=== PATIENT | male | born 1975 | race African-American/Black ===

== ENCOUNTER 2016-07-04 14:16 | Emergency (ER) ==
[2016-07-04 14:27] VITALS: BP 144/1
--- NOTE | 2016-07-04 14:59 | PROVIDER DOCUMENTATION ---
HPI-Respiratory General - History of Present Illness-Resp Quality of Pain: reports: none Severity in ED: reports: mild Onset/Duration: reports: 24 hours ago Timing: reports: improving Cough Quality/Degree: reports: no cough Episode Frequency: occasional episodes Current Respiratory Medication Therapy: Initiated see nurses note Modifying Factors: improves with: exertion, albuterol nebulizer, oxygen Associated Symptoms: reports: denies symptoms Similar Symptoms Previously?: Yes Recently seen or treated by another doctor?: No <Maxi Vaca - Last Filed: 07/04/16 14:55> <Mateusz Beckett - Last Filed: 07/04/16 15:04> - General Chief Complaint: Asthma Attack Stated Complaint: ASTHMA SX Time Seen by Provider: 07/04/16 14:38 Allergies/Adverse Reactions: Patient Allergies Allergy/AdvReac Type Severity Reaction Status Date / Time No Known Allergies Allergy Verified 01/30/16 07:38 Home Medications: Home Medication List Medication Instructions Recorded Confirmed Last Taken Type Albuterol Sulfate Inhaler 2 puff INH Q6H PRN PRN #1 inhaler 11/28/15 01/30/16 Unknown Rx [Ventolin Hfa] Albuterol Sulfate 1.25 mg IH Q4-6H PRN PRN #30 01/13/16 01/30/16 Unknown Rx vial.neb Albuterol Sulfate 2.5 mg IH Q4H PRN PRN #120 vial.neb 07/04/16 Unknown Rx Albuterol Sulfate [Albuterol 8.5 gm IH Q4-6H PRN PRN #2 07/04/16 Unknown Rx Sulfate Hfa] hfa.[email or web address] Prednisone 10 mg PO DAILY #50 tablet 07/04/16 Unknown Rx - History of Present Illness-Resp Nature of Presenting Problem: PT C/O SOB SINCE YESTERDAY WORSE WHEN HE GETS OVER HEATED STATED "I HAVE BEEN OUT OF MY ALBUTEROL SO I HAVE BEEN USING MY DAUGHTERS MEDICATION". (Maxi Vaca) Review of Systems - Adult - REVIEW OF SYSTEMS - ADULT Constitutional: denies: chills, fever, fatique Eyes: denies: discharge, double vision, eye pain Ears, Nose, Mouth & Throat: denies: ear pain, mouth/dental pain, throat swelling Cardiovascular: denies: chest pain, irregular heart rate, palpitations Respiratory: reports: shortness of breath, wheezing (MILD). denies: cough Gastrointestinal: denies: abdominal pain, diarrhea, nausea, vomiting Genitourinary: denies: dysuria, flank pain, hematuria Musculoskeletal: denies: back pain, joint swelling, neck pain Integumentary: denies: hives, itching, rash Neurological: denies: dizziness/vertigo, headache/migraines, numbness Psychiatric: denies: anxiety, depression, emotional problems Endocrine: denies: change in skin pigment, heat intolerance, increased thirst Allergic/Immunologic: reports: asthma. denies: food allergy, urticaria All Other Systems: Reviewed and Negative <Maxi Vaca - Last Filed: 07/04/16 14:55> Past History - Adult - PAST MEDICAL HISTORY-ADULT Review of Records: reports: Old Records Reviewed, Nursing Assessment Review, Medications Reviewed Major Childhood Illnesses: reports: denies history Respiratory: reports: asthma, bronchitis - PRIOR SURGERIES/PROCEDURES Surgical/Procedure History: reports: none - IMMUNIZATION STATUS Childhood Immunizations: See Nurse Assessment Flu Vaccine: See Nurse Assessment - FAMILY HISTORY Family History: reviewed, not pertinent - SOCIAL HISTORY Smoking: greater than 1 pack/day Substance Use: none/never Alcohol Use Frequency: never Living Situation: family <Maxi Vaca - Last Filed: 07/04/16 14:55> Physical Exam-General - PHYSICAL EXAM-ADULT Initial Vital Signs Reviewed: Yes - CONSTITUTIONAL General Appearance: appears well, alert, no apparent distress - EYES Eyes: PERRL/EOMI, pink conjunctivae, fundi clear, no AV nicking - HEAD, EARS, NOSE, MOUTH & THROAT HENMT: normocephalic/atraumatic, moist mucous membranes, normal ENT inspection, TMs normal, pharynx normal - NECK Neck: non-tender, full range of motion, supple, normal inspection - RESPIRATORY Respiratory: chest non-tender, no pleuratic chest pain, no respiratory distress , no accessory muscle use, wheezing (MILD) - CARDIOVASCULAR Cardiovascular: normal peripheral pulses, regular rate, rhythm, no edema, no gallop, no JVD, no murmur - GASTROINTESTINAL (ABDOMEN) Abdominal Exam: normal bowel sounds, non tender, soft, no organomegaly, no pulsatile mass - MUSCULOSKELETAL Back Exam: normal inspection, no CVA tenderness, no vertebral tenderness Extremity: normal range of motion, non-tender, normal gait, normal inspection, no pedal edema, no calf tenderness, normal capillary refill - SKIN Integumentary: normal color, normal turgor, warm/dry - PSYCHIATRIC Psych/Mental Status: normal mood/affect, normal thought content, normal thought process <Maxi Vaca - Last Filed: 07/04/16 14:55> Departure <Maxi Vaca - Last Filed: 07/04/16 14:55> - Departure Time of Disposition Order: 14:59 Certified Medical Emergency: Emergent <Mateusz Beckett - Last Filed: 07/04/16 15:04> - Departure DIAGNOSIS: Asthma Qualifiers: Asthma severity: mild intermittent Asthma complication type: uncomplicated Qualified Code(s): J45.20 - Mild intermittent asthma, uncomplicated Disposition: HOME 01 Condition: Stable Additional Instructions: ashtma meds refilled, use steroids as required ED Follow Up Instructions: You have been treated by a care provider in the Emergency Department. These instructions are being provided to you so you can have an understanding of how to care for yourself upon discharge. Upon discharge from the Emergency Department, you are responsible for making arrangements for follow-up care by a physician of your choice. Take all prescribed medications as directed. Return to the Emergency Department immediately for any new or worsening symptoms. You may call the Physician Referral phone number at [phone] to obtain a list of Physicians who are taking new patients. Prescriptions: Albuterol Sulfate 2.5 mg IH Q4H PRN PRN #120 vial.neb PRN Reason: wheezing, short of breath Albuterol Sulfate [Albuterol Sulfate Hfa] 8.5 gm IH Q4-6H PRN PRN #2 hfa.[email or web address] PRN Reason: wheezing, short of breath Prednisone 10 mg PO DAILY #50 tablet Physician Attestation
[2016-07-04] MEDS ORDERED: PREDNISONE PO ONE (15:03)
== END 2016-07-04 15:20 | disposition home or self-care (01) ==
LOC: P.ED 14:16
DX: J45.20 Mild intermittent asthma, uncomplicated (principal); R06.02 Shortness of breath; R06.2 Wheezing; F17.210 Nicotine dependence, cigarettes, uncomplicated
CPT/HCPCS: 99282; J7512

== ENCOUNTER 2019-02-21 03:08 | Inpatient (IN) ==
[2019-02-21] MEDS ORDERED: DUONEB (A & A) INH ONE (03:22)
[2019-02-21] MEDS ORDERED: DECADRON IM ONE (04:04)
--- NOTE | 2019-02-21 04:23 | PROVIDER DOCUMENTATION ---
HPI-Respiratory General - General Chief Complaint: Shortness of Breath Stated Complaint: SOB Time Seen by Provider: 02/21/19 03:21 Source: patient Allergies/Adverse Reactions: Patient Allergies Allergy/AdvReac Type Severity Reaction Status Date / Time No Known Allergies Allergy Verified 02/16/19 15:31 Home Medications: Home Medication List Medication Instructions Recorded Confirmed Last Taken Type Albuterol [Albuterol Neb] 2.5 mg NEB Q4H PRN #30 neb 02/16/19 02/21/19 Unknown Rx - History of Present Illness-Resp Nature of Presenting Problem: Patient is a 43 year old black male with history of asthma, just seen 5 days ago in ED for asthma exacerbation and sent home with asthma medication which he failed to obtain. patient now arrives with shortness of breath and wheezing. Denies fever. Quality of Pain: reports: none Onset/Duration: reports: 1 week ago Timing: reports: still present Modifying Factors: improves with: exertion Similar Symptoms Previously?: Yes Recently seen or treated by another doctor?: Yes (5 days ago in ER) Review of Systems - Adult - REVIEW OF SYSTEMS - ADULT Constitutional: denies: chills, fever Eyes: reports: no symptoms reported Ears, Nose, Mouth & Throat: reports: no symptoms reported Cardiovascular: denies: chest pain Respiratory: reports: cough, wheezing Gastrointestinal: reports: no symptoms reported Genitourinary: reports: no symptoms reported Musculoskeletal: reports: no symptoms reported Integumentary: reports: no symptoms reported Neurological: reports: no symptoms reported Psychiatric: reports: no symptoms reported Endocrine: reports: no symptoms reported Hematologic/Lymphatic: reports: no symptoms reported Allergic/Immunologic: reports: no symptoms reported All Other Systems: Reviewed and Negative Past History - Adult - PAST MEDICAL HISTORY-ADULT Review of Records: reports: Old Records Reviewed, Nursing Assessment Review, Medications Reviewed, Social history reviewed & non-contributory. Major Childhood Illnesses: reports: denies history Cardiovascular: reports: denies history Respiratory: reports: asthma, bronchitis, COPD Gastrointestinal: reports: denies history Obstetrical/Gynecological: reports: denies history Genitourinary: reports: denies history Musculoskeletal: reports: denies history Neurological: reports: denies history Endocrine/Immune: reports: denies history Other Conditions: reports: denies history - PRIOR SURGERIES/PROCEDURES Surgical/Procedure History: reports: none - IMMUNIZATION STATUS Childhood Immunizations: See Nurse Assessment Flu Vaccine: See Nurse Assessment - FAMILY HISTORY Family History: reviewed, not pertinent Physical Exam-General - CONSTITUTIONAL General Appearance: alert, no apparent distress - EYES Eyes: other (clear) - HEAD, EARS, NOSE, MOUTH & THROAT HENMT: moist mucous membranes - NECK Neck: supple - RESPIRATORY Respiratory: other (difuse bilateral wheezing) - CARDIOVASCULAR Cardiovascular: regular rate, rhythm - GASTROINTESTINAL (ABDOMEN) Abdominal Exam: soft. negative: rebound - MUSCULOSKELETAL Back Exam: normal inspection, no CVA tenderness Extremity: normal range of motion, non-tender Peripheral Pulses: radial (R): 2+, radial (L): 2+ - SKIN Integumentary: normal color, normal turgor, warm/dry, abrasion(s) - NEUROLOGIC Neurologic: grossly normal - PSYCHIATRIC Psych/Mental Status: anxious Progress - PLAN OF CARE/RESULTS Progress/Plan/Lab Results: Vital Signs - 8 hr 02/21/19 03:13 02/21/19 03:30 02/21/19 05:09 Temperature 98.1 F Pulse Rate 101 H 93 H 98 H Respiratory Rate 28 H 24 22 Blood Pressure 124/72 O2 Sat by Pulse Oximetry 88 L 90 L 94 L Orders Category Date Time Status Saline Loc NOW Care 02/21/19 05:22 Ordered CHEST-2 VIEWS [RAD] Stat Exams 02/21/19 04:05 Taken Albuterol 2.5MG/Ipratrop 0.5MG [Duoneb (A & A)] Med 02/21/19 03:22 Discontinued 3 ml INH NOW ONE Albuterol [Albuterol Neb] Med 02/21/19 04:51 Discontinued 2.5 mg INH NOW ONE Dexamethasone [Decadron] Med 02/21/19 04:04 Discontinued 8 mg IM NOW ONE Aerosol Treatments Routine Oth 02/21/19 03:22 Completed Aerosol Treatments Routine Oth 02/21/19 04:51 Completed Aerosol Treatments Stat Oth 02/21/19 03:22 Completed Aerosol Treatments Stat Oth 02/21/19 04:51 Completed - REASSESSMENT Reassessment #1 Time Reassessed: 04:50 Status: unchanged Reassessment Comment: continues to wheeze Reassessment #2 Status: unchanged Reassessment Comment: continues to wheeze - CONSULTS/PCP/HOSPITALIST Notification #1 *Consult/PCP/Hospitalist*: Dr. Vizcaino Time Discussed: 05:20 Consult Disposition: Admit Departure - Departure Date of Disposition Decision: 02/21/19 Time of Disposition Decision: 05:25 DIAGNOSIS: Noncompliance Asthma attack Qualifiers: Asthma severity: mild Asthma persistence: intermittent Qualified Code(s): J45.21 - Mild intermittent asthma with (acute) exacerbation Disposition: ADMITTED INPATIENT 09 Certified Medical Emergency: Emergent Condition: Stable Additional Instructions: please fill prescriptions that were given to you 2 days ago. Referrals and Follow-Ups: None,PCP [Primary Care Provider] - - Critical Care Note This patient required my direct & personal management of CC.: No Attestation - Physician/ SANTIAGO Attestation Patient care was provided by Advanced Practice Provider:: No The physician spent face to face time with patient:: Yes Advanced Practice Provider documentation review:: Supervising physician onsite and consulted in the evaluation and care of this patient. The physician did have a face to face encounter with the patient.
[2019-02-21] MEDS ORDERED: ALBUTEROL NEB INH ONE ×2 (04:51→09:23)
[2019-02-21 05:54] LABS: BASO# 0.02 X1000 (0.0-0.2); BASO% 0.2 % (0.0-0.8); EOS# 0.32 X1000 (0.0-0.7); EOS% 2.7 % (0.0-10.0); HEMOGLOBIN 13.5 g/dL (14.0-18.0); IMM GRAN# 0.01 X1000 (0.0-0.04); IMM GRAN% 0.1 % (0.0-0.5); LYMPH# 0.81 X1000 (1.2-3.4); LYMPH% 6.8 % (20.5-51.1); MCH 32.5 PG (27-31); MCHC 34.6 g/dL (33-37); MCV 93.8 FL (81-99); MONO# 0.73 X1000 (0.11-0.59); MONO% 6.2 % (1.7-9.3); NEUT# 9.94 X1000 (1.4-6.5); PLT 257 X1000 (130-400); RBC 4.16 XMIL (4.7-6.1); RDW 13.9 % (11.5-14.5); WBC 11.83 X1000 (4.8-10.8)
[2019-02-21 06:18] LABS: AGAP 13; BUN 9 mg/dL (8-22); CALCIUM 9.2 mg/dL (8.8-10.2); CHLORIDE 104 mmol/L (98-107); COSMO 281; CREATININE 0.9 mg/dL (0.7-1.2); ESTIMATED GFR > 60; GLUCOSE 110 mg/dL (70-104); POTASSIUM 3.7 mmol/L (3.5-5.1); SODIUM 141 mmol/L (136-145); TCO2 23 mmol/L (25-35)
[2019-02-21] MEDS ORDERED: DUONEB (A & A) INH SCH (07:30)
[2019-02-21] MEDS: DUONEB (A & A) INH PRN ×2 (07:45→09:54)
--- NOTE | 2019-02-21 07:54 | Diag Imaging Result Doc PS360 ---
EXAM: CHEST-2 VIEWS - 02/21/2019 HISTORY: sob TECHNIQUE: Chest two views COMPARISON: 02/16/2019 FINDINGS: Heart size is normal. There are COPD changes with hyperexpanded lungs. The lungs appear mildly less hyperexpanded compared to prior. There is no acute consolidation, pleural effusion, or pneumothorax identified. There is old fracture deformity of the posterior lateral right ninth rib noted. IMPRESSION: Mild decrease in hyperexpansion of lungs compared to prior, which may relate to improvement in COPD exacerbation. No other acute changes. Electronically signed by Zac Simms 02/21/2019 7:51 AM
[2019-02-21] MEDS ORDERED: SOLU-MEDROL IV SCH ×2 (08:00→16:00)
[2019-02-21] MEDS ORDERED: ZOFRAN IV PRN ×3 (09:20→12:13)
[2019-02-21] MEDS ORDERED: TYLENOL PO PRN ×2 (09:20→11:10)
[2019-02-21] MEDS ORDERED: NS 1,000 ML IV SCH (09:30)
[2019-02-21] MEDS ORDERED: ALBUTEROL NEB ONE (09:38)
[2019-02-21] MEDS ORDERED: DUONEB (A & A) INH PRN (11:10)
[2019-02-21] MEDS: DUONEB (A & A) INH SCH ×4 (11:51→23:04)
[2019-02-21] MEDS: NS 1,000 ML IV SCH (11:57)
[2019-02-21] MEDS: ZITHROMAX 500 MG/NS 500 MG/250 ML IVPB IV SCH (11:58)
--- NOTE | 2019-02-21 13:30 | HISTORY AND PHYSICAL ---
PRIMARY CARE PROVIDER: None. CHIEF COMPLAINT: Shortness of breath. HISTORY OF PRESENT ILLNESS: Mr. Jean is a 43-year-old male who carries a past medical history of asthma, noncompliant, reported to the ED with increase in shortness of breath. He was treated 5 or 6 days ago in the ED for asthma exacerbation, sent home with medications which he did not fill. He came back to the ED with shortness of breath. He denies any fever, chills or cough. No chest pain, nausea, vomiting, or diarrhea, and was admitted for acute asthma exacerbation. After several rounds of treatment, he continues to decline so we will be transferring him to [facility] to their ICU with a Pulmonology consult. He was given several doses of albuterol nebulizers, Decadron and Solu-Medrol as well as DuoNeb with no improvement and continues to decline. PAST MEDICAL HISTORY: 1. COPD/Asthma. 2. Noncompliance. PAST SURGICAL HISTORY: None. FAMILY HISTORY: Reviewed and noncontributory. SOCIAL HISTORY: He lives with family. He is a daily smoker. No alcohol or illicit drugs. ALLERGIES: No known drug allergies. HOME MEDICATIONS: 1. Albuterol nebulizer 2.5 mg nebulized q.4 hours. 2. Albuterol inhaler 2 puffs inhaled q.6 hours p.r.n. shortness of breath. However, I do not believe that these were filled. REVIEW OF SYSTEMS: Twelve-point review of systems completely negative except for those mentioned in HPI. PHYSICAL EXAMINATION: VITAL SIGNS: Temperature is 97.6 degrees, heart rate 103, respirations 22, blood pressure 133/76, O2 is 93% on 3 L nasal cannula, increased to 5 L. HEENT: Atraumatic, normocephalic. PERRL. NECK: Supple. Trachea midline. CV: Sinus tachycardia, S1, S2 appreciated. No murmurs, gallops, rubs noted. RESPIRATORY: Lung sounds initially wheezes with not moving a lot of air. Since numerous breathing treatments he does sound a little bit more open but continues to wheeze. Continues to be in the tripod position. States he cannot catch his breath. GI: Abdomen is flat, soft, nontender, nondistended. Positive bowel sounds 4 quads. LOWER EXTREMITIES: Negative for edema. No signs of clubbing or cyanosis. NEUROLOGIC: No focal deficits noted. LABORATORY DATA: White count 11, hemoglobin and hematocrit 13 and 39, platelet count is 257,000. Sodium 141, potassium 3.7, BUN 9, creatinine 0.9, blood glucose was 110. Chest x-ray: Mild decrease in hyperexpansion of the lungs compared to prior, which may relate to improvement in COPD exacerbation. No other acute changes. ASSESSMENT AND PLAN: 1. COPD exacerbation with minimal improvement after receiving multiple rounds of DuoNeb and steroids as well as supplemental O2. We will transfer him to [facility] ICU with a Pulmonology consult. 2. Acute hypoxemic respiratory failure secondary to #1. 3. Further treatment and evaluation pending physician evaluation, laboratory and diagnostic data. Dictated by ZARI Olea for Pascual Vizcaino MD cc: MD Ramírez Hermosillo MD [facility]
--- NOTE | 2019-02-21 14:11 | HISTORY AND PHYSICAL ---
ADDENDUM: Patient seen and examined by myself. Full note dictated and discussed with nurse practitioner. Patient notes that he has been short of breath, cough, congestion for the past several day, has started using albuterol again. Notes that he does not typically use albuterol on any regular basis. States he had increased work of breathing, shortness of breath, no real fevers or chills and has had a nonproductive cough. Has had increased work of breathing, dyspnea on exertion. He presented to the hospital in moderate distress. We are going to admit him the hospital, place him on nebulized treatments q.4 with q.2 p.r.n. At this point, feel as though he needs to be in the ICU so going to transfer him to the ICU and consult Cardiology. cc: Pascual Vizcaino MD
[2019-02-21] MEDS: SOLU-MEDROL IV SCH (15:16)
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
[2019-02-22] MEDS: SOLU-MEDROL IV SCH ×3 (01:04→16:23)
[2019-02-22] MEDS: NS 1,000 ML IV SCH ×3 (01:36→15:12)
[2019-02-22] MEDS: DUONEB (A & A) INH SCH ×6 (03:54→23:21)
[2019-02-22 06:46] LABS: ALLEN TEST YES; BE 3.6 mmoll (-3.0-3.0); BLOOD TYPE ARTERIAL; HCO3-(ACT) 27.7 mmoll (20.0-26.0); METHB 1.4 % (0.0-1.5); O2(CT) 20.7 mL/dL (15.0-23.0); O2HB 96.7 % (95.0-99.0); PCO2(98.6) 49 mmHg (35-45); PO2(98.6) 114 mmHg (60-100); SAMPLE BLOOD; SAO2 99.7 % (95.0-100.0); THB 15.1 g/dL (11.5-17.4); pH(98.6) 7.39 (7.35-7.45)
[2019-02-22 06:47] LABS: MODALITY VENTIMASK
[2019-02-22 06:48] LABS: HEMATOCRIT 42.9 % (42.0-52.0); HEMOGLOBIN 14.4 g/dL (14.0-18.0); MCH 32.2 PG (27-31); MCHC 33.6 g/dL (33-37); MPV 10.6 FL (7.4-10.4); RBC 4.47 XMIL (4.7-6.1); RDW 14.1 % (11.5-14.5); WBC 22.88 X1000 (4.8-10.8)
[2019-02-22 06:57] LABS: AGAP 14; ALB/GLOB RATIO 1.5; ALBUMIN 3.8 g/dL (3.5-5.0); ALKALINE PHOSPHATASE 67 U/L (32-122); BUN 12 mg/dL (8-22); CALCIUM 8.7 mg/dL (8.8-10.2); CHLORIDE 99 mmol/L (98-107); COSMO 275; CREATININE 0.8 mg/dL (0.7-1.2); ESTIMATED GFR > 60; GLUCOSE 131 mg/dL (70-104); GOT 64 U/L (10-34); GPT 24 U/L (10-44); POTASSIUM 4.9 mmol/L (3.5-5.1); SODIUM 137 mmol/L (136-145); TCO2 24 mmol/L (25-35); TOTAL PROTEIN 6.4 g/dL (6.3-8.3)
--- NOTE | 2019-02-22 07:03 | PROGRESS NOTE ---
DATE: 02/22/2019 SUBJECTIVE: The patient reports breathing much better in comparing with admission. According to nursing staff, no acute issues noted overnight. OBJECTIVE: Vital Signs: Temperature 100.3, heart rate 90, respiratory rate 33, blood pressure 147/77, O2 saturation 99% on Venturi mask at 15 L/minute. General: This is a 43-year-old male, lying in bed in no acute distress. Cardiovascular: S1, S2 heard. Tachycardic, but no murmurs, gallops, or rubs. Respiratory: The patient is a little bit tachypneic, and wheezing noted in both pulmonary stevenson. The patient is not using any accessory muscles or having work of breathing. Abdomen: Soft, nontender to palpation. Bowel sounds present. No organomegaly. Extremities: No clubbing, cyanosis, or edema. Peripheral pulses present in both legs. Neurological: The patient is alert and oriented x3, moving all four extremities. LABORATORY DATA: Pending at the time of my dictation. ASSESSMENT AND PLAN: 1. Acute hypoxemic respiratory failure secondary to severe asthma exacerbation. The patient is on Zithromax and DuoNeb every 4 hours scheduled. Considering that he is developing fever being on Zithromax, will add Zosyn. Will check CT of the thorax without contrast to see if there is any pneumonia that we are missing. We have checked for influenza, and that is negative. Will continue to monitor this patient. 2. Tobacco use. The patient is strongly advised to stop smoking. 3. Disposition. Considering that he is requiring still being on Ventimask at 15 L/minute, I will transfer this patient to our [facility], and will continue to monitor. cc: MD Pascual Kim MD MTDD
[2019-02-22] MEDS: ZOSYN 3.375 GM in NS 50 ML IV SCH ×3 (08:11→20:34)
--- NOTE | 2019-02-22 08:18 | Diag Imaging Result Doc PS360 ---
EXAM: CT THORAX W/O CONTRAST 02/22/2019 HISTORY: r/o pna TECHNIQUE: This exam was performed using automated exposure control, adjustment of mA or kV according to patient size, and/or use of iterative reconstruction technique. COMMENT: There are no previous studies available for comparison. There are some groundglass opacities in the perihilar portions of both lower lobes the right middle lobe and the lingula and the left upper lobe anteriorly. There is a calcified granuloma in the left lower lobe posteriorly. There is no evidence of significant adenopathy. There are no abnormal fluid collections. There is an apparent cyst in the dome of the left hepatic lobe seen on image 105 measuring 9 mm in diameter. There are additional cysts present in the right hepatic lobe. There is a cyst in the left kidney. IMPRESSION: Perihilar pulmonary edema versus pneumonia. The possibility of an atypical pneumonia cannot be excluded. Electronically signed by Lowell Person 02/22/2019 8:16 AM
[2019-02-22] MEDS: ZITHROMAX 500 MG/NS 500 MG/250 ML IVPB IV SCH (11:20)
--- NOTE | 2019-02-22 22:17 | PULMONOLOGY PROGRESS NOTE ---
DATE: 02/22/2019 SUBJECTIVE: The patient is awake, alert, and conversant. He reports his breathing has significantly improved. OBJECTIVE: Vital Signs: Maximum temperature in the last 24 hours 100.3 degrees, current temperature 98.2 degrees. HEENT: Pupils are equal and reactive. Oropharynx appears clear. Neck: Supple. Chest: Reveals good air entry bilaterally with diffuse expiratory wheezing. Cardiac: Regular rate. Normal S1, normal S2. Abdomen: Soft. Extremities: Without edema. LABS: Arterial blood gas this morning pH 7.39, pCO2 of 49, PO2 of 114. IMPRESSION: A 43-year-old with 1. Severe asthma exacerbation. 2. Acute hypoxemic respiratory failure. 3. Ongoing tobacco use/nicotine addiction. DISCUSSION: 43-year-old problems outlined above. He continues to improve. PLAN: 1. Agree with transfer to the floor. 2. Continue steroids and nebulizer treatment. 3. Smoking cessation. 4. Yearly influenza vaccine. 5. Recommend initiation of a high dose inhaled corticosteroid/long-acting beta agonist at the time of discharge. This could be accomplished with Demetria Delaney Advair, Dulera. cc: MD Pascual Hassan MD
[2019-02-23] MEDS: ZOSYN 3.375 GM in NS 50 ML IV SCH ×4 (02:28→21:40)
[2019-02-23] MEDS: SOLU-MEDROL IV SCH ×3 (02:28→21:41)
[2019-02-23] MEDS: DUONEB (A & A) INH SCH ×6 (02:57→22:50)
[2019-02-23 05:08] LABS: ALLEN TEST YES; BE 3.9 mmoll (-3.0-3.0); BLOOD TYPE ARTERIAL; HCO3-(ACT) 27.9 mmoll (20.0-26.0); METHB 1.1 % (0.0-1.5); O2(CT) 20.3 mL/dL (15.0-23.0); O2HB 96.3 % (95.0-99.0); PCO2(98.6) 48 mmHg (35-45); PO2(98.6) 98 mmHg (60-100); SAMPLE BLOOD; SAO2 98.9 % (95.0-100.0); THB 14.9 g/dL (11.5-17.4)
[2019-02-23 05:09] LABS: MODALITY VENTIMASK
[2019-02-23] MEDS: NS 1,000 ML IV SCH (08:17)
[2019-02-23] MEDS: ZITHROMAX 500 MG/NS 500 MG/250 ML IVPB IV SCH (12:16)
--- NOTE | 2019-02-23 17:02 | PROGRESS NOTE ---
DATE: 02/23/2019 SUBJECTIVE: Patient has no major complaints. He seems to be doing okay. He is complaining about his bed alarm, that he cannot get up. I guess he has been on bed rest since the 2nd. He looks much better to me. OBJECTIVE: Vital Signs: Blood pressure is 104/62, heart rate 95, respiratory rate 18, temperature 98.1 degrees, 96% on room air. Cardiovascular: Regular rate and rhythm. Pulmonary: Bilateral breath sounds. Clear to auscultation. GI: Soft, nontender, nondistended. Bowel sounds are positive. LABORATORY DATA: I do not have another white count. I guess his white count was rising. His blood gas looks pretty good. PROBLEM LIST: 1. Acute hypoxic respiratory failure due to severe asthma exacerbation. He seems to be doing better. He is on Zithromax and he is on Zosyn. CT showed perihilar pneumonia, but he seems to be doing better. I think we need to work on ambulating, getting him up and around, all of those kinds of things. I am going to drop his prednisone to q.12 because I think that is probably what is inducing his leukocytosis and his neutrophilia. 2. Disposition. I think he is stable for the floor and possibly home tomorrow at the discretion of Dr. Frank's re-evaluation. cc: MD Pascual Rowan MD
--- NOTE | 2019-02-23 20:46 | PULMONOLOGY PROGRESS NOTE ---
DATE: 02/23/2019 SUBJECTIVE: Patient is awake, alert and conversant. He feels he has significantly improved. He is without specific complaints. OBJECTIVE: Blood pressure 128/68, heart rate 92, respiratory rate 16, oxygen saturation 96% on room air.HEENT: Pupils are equal and reactive. Oropharynx appears clear. Neck: Supple. Chest: Reveals faint wheezing bilaterally. Cardiac: S1 and S2. Abdomen: Soft. Extremities: Without edema. LABORATORIES: Arterial blood gas on 35% FiO2, pH 7.40, pCO2 of 48, PO2 of 98. IMPRESSION: 1. Severe asthma exacerbation. 2. Acute hypoxemic respiratory failure. 3. Ongoing tobacco use/nicotine addiction at time of admission. RECOMMENDATION: 1. Agree with transfer to the medical floor. 2. Anticipate discharge soon. Would recommend a tapering prednisone dose over about 3 weeks given the severity of his exacerbation. Would place him on 30 mg a day for a week followed by 20 mg a day for a week and to be completed with 10 mg a day for a week. 3. Consider completing outpatient dose of azithromycin. 4. Smoking cessation. 5. Yearly influenza vaccine. 6. Recommend discharging patient on Breo 200/25 mcg per day 1 puff each day. 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 7. I will be glad to follow him in my office in 2 to 3 weeks. cc: MD Pascual Hassan MD
[2019-02-24] MEDS: ZOSYN 3.375 GM in NS 50 ML IV SCH ×3 (02:38→14:24)
[2019-02-24] MEDS: DUONEB (A & A) INH SCH ×4 (03:59→15:25)
[2019-02-24 06:11] LABS: HEMATOCRIT 41.2 % (42.0-52.0); HEMOGLOBIN 14.2 g/dL (14.0-18.0); IMM GRAN# 0.03 X1000 (0.0-0.04); IMM GRAN% 0.2 % (0.0-0.5); LYMPH# 0.55 X1000 (1.2-3.4); LYMPH% 3.9 % (20.5-51.1); MCH 32.3 PG (27-31); MCHC 34.5 g/dL (33-37); MCV 93.6 FL (81-99); MONO# 0.57 X1000 (0.11-0.59); MPV 10.3 FL (7.4-10.4); NEUT# 13.01 X1000 (1.4-6.5); NEUT% 91.9 % (42.2-75.2); PLT 265 X1000 (130-400); RDW 13.5 % (11.5-14.5); WBC 14.16 X1000 (4.8-10.8)
[2019-02-24 06:38] LABS: LYMPHS 8 % (21-51); MONO 2 % (1-9); SEGS 86 % (42-75)
[2019-02-24] MEDS: SOLU-MEDROL IV SCH (08:15)
--- NOTE | 2019-02-24 09:29 | PROGRESS NOTE ---
DATE: 02/24/2019 Mr. Jean is a 43-year-old, male who came with a past medical history of asthma, noncompliant I think to his medications. Reported in the emergency room with increased shortness of breath. Treated 5 or 6 days ago in the emergency room for asthma exacerbation. Sent home with medications, he did not fill. Denies any fever or chills. No nausea, vomiting, or diarrhea. PAST MEDICAL HISTORY: 1. COPD, asthma. 2. Noncompliance. Admitted with COPD or asthma exacerbation. Minimal improvement after receiving multiple rounds of DuoNebs. He states he is breathing better today, still a little wheezing but would like to go home today if he can. PHYSICAL EXAMINATION: Temperature is 98.4 degrees. Remains afebrile. Pulse 84, respirations 16, blood pressure 136/91. Pupils are equal and round. Lungs are clear in all lung stevenson. Cardiovascular Examination: Regular rhythm and rate without murmur or S3. Abdomen is soft. Skin is warm and dry. ASSESSMENT AND PLAN: 1. Severe asthma exacerbation, acute hypoxemic respiratory failure, ongoing tobacco use, nicotine addiction. Anticipate he will get to go home this afternoon. Taper prednisone over about [address] him on 30 mg a day, followed by 20 mg for a week, to be completed a 10 day mg a day for a week. 2. Consider completing outpatient dose of azithromycin. Discussed smoking cessation. Yearly influenza vaccination. Discharge the patient home on Breo 200/25 mcg 1 puff daily. cc: MD Pascual Walker MD
[2019-02-24] MEDS: ZITHROMAX 500 MG/NS 500 MG/250 ML IVPB IV SCH ×2 (14:59→15:02)
--- NOTE | 2019-02-24 17:17 | DISCHARGE SUMMARY ---
ADMISSION DATE: 02/21/2019 DISCHARGE DATE: PRIMARY CARE PHYSICIAN: None. HOSPITAL COURSE: He presented on 02/21/2019 with shortness of breath. A 43-year-old male with past medical history of asthma, noncompliant to medication, with increased shortness of breath. He was treated 5 or 6 days prior to this in the emergency room for asthma exacerbation and sent home on medications, which he did not fill. He came back to the emergency room short of breath. He denies any fever, chills or cough. No chest pain, nausea, vomiting or diarrhea. He was admitted with acute asthma exacerbation. After several rounds of treatment he continued to decline, so transferred to [facility] in ICU with Pulmonary consult. Given several doses of albuterol nebulizer, Decadron, Solu-Medrol and DuoNeb, with no improvement. The patient had a Pulmonary consult. They checked for influenza and it was negative. Continued his steroids and nebulizer. Discussed with the patient the importance of smoking cessation, the importance of yearly influenza vaccine, and the patient showed steady improvement. [place] he was ready go home on 02/24/2019. PAST MEDICAL HISTORY: 1. COPD/asthma. 2. Noncompliance. DIAGNOSES: 1. Admitted with chronic obstructive pulmonary disease exacerbation, minimal improvement after receiving multiple rounds of DuoNeb, steroids and supplementary oxygen. 2. Acute hypoxemic respiratory failure secondary to #1. 3. History of asthma. DISCHARGE MEDICATIONS: 1. Dr. Frank recommended a slow taper, put him on 30 mg a day for a week, followed by 20 mg a day for a week and then 10 mg for a week, then can stop. 2. Continue his bronchodilators Breo 200/25 mcg 1 puff daily. 3. He was on antibiotic; however, we did not see any evidence to support a bacterial infection. DIAGNOSTIC DATA: Chest x-ray on 02/21: Mild decreased hyperexpansion of lungs compared to prior; improvement of COPD exacerbation. cc: MD Pascual Walker MD
[2019-02-24 17:19] VITALS: BP 137/84
== END 2019-02-24 18:02 | disposition home or self-care (01) | DRG 189 ==
LOC: P.ED 03:08 → P.MEDSURG 03:08 → SUATTDRO 06:05 → ICU 10:25 → 2N 02-22 10:27 → 3N 02-24 06:36
PROVIDERS: ADMIT Family Medicine; ATTEND Emergency Medicine